=== PATIENT | female | born 1985 | race Caucasian/White ===

== ENCOUNTER → 2021-09-30 | Outpatient (CLI) | payer BC | LOC: EXRD 13:40 | DX: E04.9 Nontoxic goiter, unspecified (principal) | CPT/HCPCS: 76536 ==

== ENCOUNTER → 2022-01-04 | Outpatient (CLI) | payer BC | LOC: KOH-I 13:21 | DX: R06.02 Shortness of breath (principal) | CPT/HCPCS: 71046 ==